=== PATIENT | female | born 1970 | race Two or more races ===

== ENCOUNTER 2023-06-15 20:53 | Emergency (ER) | payer OTHER ==
[~2023-06-15] VITALS: Ht 157.5 cm; Wt 95.3 kg
[2023-06-15] MEDS ORDERED: DILTIAZEM 24HR180 MG PO (21:40)
[2023-06-15] MEDS ORDERED: LISINOPRIL40 MG PO (21:40)
[2023-06-15] MEDS ORDERED: INSULIN AS100 UNIT/2 SQ (21:40)
[2023-06-15] MEDS ORDERED: INSULIN GL100 UNIT/3 SQ (21:40)
[2023-06-15] MEDS ORDERED: CETIRIZINE HCL10 MG PO (21:41)
[2023-06-15] MEDS ORDERED: ROSUVASTATIN CA20 MG PO (21:41)
[2023-06-15] MEDS ORDERED: DOXAZOSIN MESYLA1 MG PO (21:41)
[2023-06-15 23:19] LABS: HEMATOCRIT 39.8 % (36.0-45.00); HEMOGLOBIN 13.5 g/dL (12.0-15.00); MEAN CELL VOLUME 80.2 fL (80.00-100.00); MEAN CORPUSCULAR HEMOGLOBIN 27.3 pg (27.00-32.0); PLATELET COUNT 262 K/uL (150-450); RED BLOOD COUNT 4.96 M/uL (4.00-6.00); RED CELL DISTRIBUTION WIDTH 14.6 % (11.5-14.5)
[2023-06-15 23:35] LABS: CALCIUM 9.4 mg/dL (8.5-10.1); CREATININE SERUM 0.99 mg/dL (0.55-1.02); GFR 58.9; POTASSIUM 3.76 mEq/L (3.5-5.1)
[2023-06-16 00:23] LABS: URINE APPEARANCE Clear; URINE BILIRRUBIN Negative (NEGATIVE); URINE BLOOD Negative; URINE COLOR Yellow; URINE GLUCOSE Negative (NEGATIVE); URINE LEUKOCYTE Moderate; URINE NITRATE Negative; URINE PROTEIN Negative (NEGATIVE); URINE UROBILINOGEN 0.2 E.U./dl
[2023-06-16 00:24] LABS: URINE BACTERIA 1041.9 uL (0.0-1933); URINE RBC 3.1 uL (0.0-20.8); URINE WBC 57.9 uL (0.0-23.2)
[2023-06-16] MEDS ORDERED: MIRALAX17 GM PO (05:35)
[2023-06-16] MEDS ORDERED: PEPCID40 MG PO (05:35)
[2023-06-16] MEDS ORDERED: ONDANSETRON ODT4 MG PO (05:35)
== END 2023-06-16 05:46 | disposition home or self-care (01) ==
LOC: ER 20:54
PROVIDERS: Emergency Medicine
DX: R10.84 Generalized abdominal pain (principal); E11.9 Type 2 diabetes mellitus without complications; Z79.4 Long term (current) use of insulin; I10 Essential (primary) hypertension

== ENCOUNTER 2023-06-29 19:55 | Emergency (ER) | payer OTHER ==
[~2023-06-29] VITALS: Ht 157.5 cm; Wt 95.3 kg
[~2023-06-29 19:55] MED LIST: CETIRIZINE HCL10 MG PO; DILTIAZEM 24HR180 MG PO; DOXAZOSIN MESYLA1 MG PO; INSULIN AS100 UNIT/2 SQ; INSULIN GL100 UNIT/3 SQ; LISINOPRIL40 MG PO; MIRALAX17 GM PO; ONDANSETRON ODT4 MG PO; PEPCID40 MG PO; ROSUVASTATIN CA20 MG PO
[2023-06-29 21:25] LABS: HEMATOCRIT 38.4 % (36.0-45.00); HEMOGLOBIN 13.2 g/dL (12.0-15.00); MEAN CELL VOLUME 80.2 fL (80.00-100.00); MEAN CORPUSCULAR HEMOGLOBIN 27.6 pg (27.00-32.0); MEAN CORPUSCULAR HGB CONC 34.4 g/dl (32.0-36.0); PLATELET COUNT 246 K/uL (150-450); RED BLOOD COUNT 4.79 M/uL (4.00-6.00); RED CELL DISTRIBUTION WIDTH 14.9 % (11.5-14.5)
== END 2023-06-29 23:40 | disposition home or self-care (01) ==
LOC: ER 19:55
PROVIDERS: General Practice
DX: J95.09 Other tracheostomy complication (principal); J45.909 Unspecified asthma, uncomplicated; I10 Essential (primary) hypertension; E11.9 Type 2 diabetes mellitus without complications; Z79.4 Long term (current) use of insulin

== ENCOUNTER 2023-07-25 20:31 | Emergency (ER) | payer OTHER ==
[~2023-07-25] VITALS: Ht 157.5 cm; Wt 90.3 kg
[2023-07-25] MEDS ORDERED: ROSUVASTATIN CA10 MG (20:43)
[2023-07-25] MEDS ORDERED: ZYRTEC10 M3 (20:43)
[2023-07-25] MEDS ORDERED: CARDURA1 MG (20:43)
[2023-07-25] MEDS ORDERED: CARDIZEM LA180 MG (20:43)
[2023-07-25] MEDS ORDERED: ZUPLENZ8 MG PO (20:44)
== END 2023-07-25 21:47 | disposition home or self-care (01) ==
LOC: ER 20:32
DX: R19.4 Change in bowel habit (principal); E11.9 Type 2 diabetes mellitus without complications; Z79.4 Long term (current) use of insulin

== ENCOUNTER 2023-10-05 16:55 | Emergency (ER) | payer OTHER ==
[~2023-10-05] VITALS: Ht 157.5 cm; Wt 87.1 kg
[~2023-10-05 16:55] MED LIST changes: +CARDIZEM LA180 MG; +CARDURA1 MG; +ROSUVASTATIN CA10 MG; +ZUPLENZ8 MG PO; +ZYRTEC10 M3
[2023-10-05] MEDS ORDERED: 0.9 % SODIUM CHLORIDE 1,000 ML IV SCH (17:45)
[2023-10-05 18:07] LABS: HEMOGLOBIN 12.8 g/dL (12.0-15.00); MEAN CELL VOLUME 83.2 fL (80.00-100.00); MEAN CORPUSCULAR HEMOGLOBIN 27.9 pg (27.00-32.0); MEAN CORPUSCULAR HGB CONC 33.6 g/dl (32.0-36.0); PLATELET COUNT 225 K/uL (150-450); RED BLOOD COUNT 4.57 M/uL (4.00-6.00); RED CELL DISTRIBUTION WIDTH 15.2 % (11.5-14.5)
[2023-10-05 18:25] LABS: CALCIUM 9.2 mg/dL (8.5-10.1); CREATININE SERUM 0.8 mg/dL (0.55-1.02); GFR 75.03; POTASSIUM 3.68 mEq/L (3.5-5.1)
[2023-10-05 18:30] LABS: URINE APPEARANCE Clear; URINE BILIRRUBIN Negative (NEGATIVE); URINE BLOOD Negative; URINE COLOR Yellow; URINE GLUCOSE Negative (NEGATIVE); URINE LEUKOCYTE Negative; URINE NITRATE Negative; URINE PROTEIN Negative (NEGATIVE); URINE UROBILINOGEN 0.2 E.U./dl
[2023-10-05 18:37] LABS: URINE EPITHELIAL CELLS 14.1 uL (0.0-38.8); URINE RBC 1.4 uL (0.0-20.8)
== END 2023-10-05 22:22 | disposition home or self-care (01) ==
LOC: ER 16:55
PROVIDERS: Emergency Medicine
DX: R10.31 Right lower quadrant pain (principal); E11.9 Type 2 diabetes mellitus without complications; Z79.4 Long term (current) use of insulin; I10 Essential (primary) hypertension